=== PATIENT | female | born 1945 | race Caucasian/White ===

== ENCOUNTER 2016-05-04 12:22 | Emergency (ER) | payer OTHER ==
[2016-05-04] MEDS ORDERED: ASPIRIN PO STA (12:28)
--- NOTE | 2016-05-04 13:36 | Diag Imaging Result Document ---
PROCEDURE NAME: CHEST-2 VIEWS - 05/04/2016 CHEST X-RAY, 2 VIEWS: COMPARISON: None. FINDINGS: The lungs are normally expanded and clear. Heart size and mediastinal contours are normal. No pneumothorax or pleural effusion. IMPRESSION: Negative exam.
[2016-05-04 13:49] LABS: MANUAL DIFF NEEDED? NO
[2016-05-04 14:02] LABS: BASO% 0.3 % (0.0-0.8); EOS# 0.15 X1000 (0.0-0.7); EOS% 2.2 % (0.0-10.0); HEMATOCRIT 43.3 % (37.0-47.0); HEMOGLOBIN 14.3 g/dL (12.0-16.0); LYMPH# 3.01 X1000 (1.2-3.4); LYMPH% 44.6 % (20.5-51.1); MCH 30.3 PG (27-31); MCV 91.7 FL (81-99); MONO# 0.74 X1000 (0.11-0.59); MPV 11.7 FL (7.4-10.4); NEUT% 41.9 % (42.2-75.2); PLT 179 X1000 (130-400); RBC 4.72 XMIL (4.2-5.4)
[2016-05-04 14:04] LABS: INR 1.01; PROTIME 10.7 Seconds (9.2-11.7); PTT 30.3 Seconds (22.0-36.0)
[2016-05-04 14:18] LABS: AGAP 9; ALBUMIN 3.9 g/dL (3.5-5.0); ALKALINE PHOSPHATASE 71 U/L (32-104); BUN 16 mg/dL (8-22); CALCIUM 9.1 mg/dL (8.8-10.2); CHLORIDE 98 mmol/L (98-107); CK PROFILE 147 U/L (24-173); COSMO 273; GOT 17 U/L (10-30); GPT 17 U/L (10-36); MAGNESIUM 1.9 mg/dL (1.5-2.7); POTASSIUM 4.2 mmol/L (3.5-5.1); SODIUM 136 mmol/L (136-145); TCO2 29 mmol/L (25-35); TOTAL BILIRUBIN 0.31 mg/dL (0.20-1.00); TOTAL PROTEIN 6.2 g/dL (6.3-8.3)
--- NOTE | 2016-05-04 14:57 | PROVIDER DOCUMENTATION ---
HPI-Chest Pain - General Chief Complaint: Chest Pain Stated Complaint: cp Time Seen by Provider: 05/04/16 13:11 Source: patient Allergies/Adverse Reactions: Patient Allergies Allergy/AdvReac Type Severity Reaction Status Date / Time acetaminophen Allergy hallucinati Verified 05/04/16 13:30 [From Darvocet-N] ons adhesive Allergy RASH Verified 05/04/16 13:30 Latex, Natural Rubber Allergy RASH Verified 05/04/16 13:30 meperidine HCl * Allergy hallucinati Verified 05/04/16 13:30 [From Demerol] ons propoxyphene HCl * Allergy hallucinati Verified 05/04/16 13:30 [From Darvon] ons propoxyphene napsylate * Allergy hallucinati Verified 05/04/16 13:30 [From Darvocet-N] ons Iodinated Contrast Media - AdvReac VOMITING Verified 05/04/16 13:30 Oral and Home Medications: Amiodarone [Cordarone] 200 mg PO DAILY 05/04/16 Apixaban [Eliquis] 5 mg PO BID 05/04/16 Bisoprolol [Zebeta] 5 mg PO DAILY 05/04/16 Carbidopa/Levodopa [Sinemet 25/100] 1 each PO QHS 05/04/16 Clonazepam [Klonopin] 0.5 mg PO TID PRN 05/04/16 Ergocalciferol (Vitamin D2) [Vitamin D] 50,000 unit PO Q7D 05/04/16 Furosemide [Lasix] 40 mg PO Q3DAYS 05/04/16 Hydrocodone/APAP 10 mg/325 mg [Colora-10] 1 each PO 4XDAY PRN 05/04/16 LISINOpril [Prinivil] 10 mg PO DAILY 05/04/16 LOVAstatin [Mevacor] 20 mg PO DAILY 05/04/16 Levothyroxine [Synthroid] 50 microgm PO DAILY 05/04/16 Methocarbamol [Robaxin] 500 mg PO TID 05/04/16 Metoclopramide HCl [Reglan] 5 mg PO TID 05/04/16 Montelukast Sodium [Singulair] 10 mg PO DAILY 05/04/16 Nitroglycerin Sl [Nitroglycerin] 0.4 mg SL PRN PRN 05/04/16 Pantoprazole [Protonix] 40 mg PO DAILY 05/04/16 Sucralfate [Carafate] 1 gm PO TID 05/04/16 - History of Present Illness-CP Nature of Presenting Problem: patient is a 70 yo F that presents with chest paint that last a few seconds that began last pm. reports palpitation type. denies any shortness of breath, n/ v/d, or back pain. Location: reports: substernal Chest Pain Radiation: reports: no radiation Quality of Pain: reports: sharp Severity in ED: mild Onset/Duration: abrupt, 24 hours ago Timing: improving, intermittent Context/Activities at Onset: reports: none Modifying Factors: improves with: nothing Associated Symptoms: denies: abdominal pain, dizziness, nausea, shortness of breath, vomiting Aspirin Treatment Today: 325 mg x 1, provided by ED Similar Symptoms Previously?: Yes Recently Seen Here or By Another Healthcare Provider: No Review of Systems - Adult - REVIEW OF SYSTEMS - ADULT Constitutional: denies: chills, fever Eyes: reports: no symptoms reported Ears, Nose, Mouth & Throat: denies: ear pain, sinus problem, throat pain, throat swelling Cardiovascular: reports: chest pain, palpitations. denies: edema, syncope Respiratory: denies: cough, shortness of breath, wheezing Gastrointestinal: denies: abdominal pain, diarrhea, nausea, vomiting Genitourinary: reports: no symptoms reported Musculoskeletal: denies: back pain, joint pain, neck pain Integumentary: reports: no symptoms reported Neurological: reports: no symptoms reported Psychiatric: reports: no symptoms reported Endocrine: reports: no symptoms reported Hematologic/Lymphatic: reports: no symptoms reported Allergic/Immunologic: reports: no symptoms reported All Other Systems: Reviewed and Negative Past History - Adult - PAST MEDICAL HISTORY-ADULT Review of Records: reports: Old Records Reviewed, Nursing Assessment Review, Medications Reviewed Cardiovascular: reports: A-Fib, HTN, hyperlipidemia Endocrine/Immune: reports: Diabetes, thyroid disorder - PRIOR SURGERIES/PROCEDURES Surgical/Procedure History: reports: cholecystectomy, hysterectomy, orthopedic ( extremity) - IMMUNIZATION STATUS Childhood Immunizations: See Nurse Assessment Flu Vaccine: See Nurse Assessment - FAMILY HISTORY Family History: reviewed, not pertinent - SOCIAL HISTORY Smoking: non-smoker Living Situation: family Physical Exam-General - PHYSICAL EXAM-ADULT Initial Vital Signs Reviewed: Yes - CONSTITUTIONAL General Appearance: alert, no apparent distress - EYES Eyes: PERRL/EOMI, pink conjunctivae - HEAD, EARS, NOSE, MOUTH & THROAT HENMT: normocephalic/atraumatic, moist mucous membranes, normal ENT inspection - NECK Neck: full range of motion, normal inspection - RESPIRATORY Respiratory: lungs clear, normal breath sounds, no respiratory distress, no accessory muscle use - CARDIOVASCULAR Cardiovascular: regular rate, rhythm, no edema, no murmur - GASTROINTESTINAL (ABDOMEN) Abdominal Exam: normal bowel sounds, non tender, soft, no organomegaly, no pulsatile mass - MUSCULOSKELETAL Back Exam: no CVA tenderness, no vertebral tenderness Extremity: normal range of motion, non-tender, normal inspection, no pedal edema , normal capillary refill, pelvis stable - SKIN Integumentary: normal color, warm/dry - NEUROLOGIC Neurologic: grossly normal, no motor/sensory deficits - PSYCHIATRIC Psych/Mental Status: normal mood/affect, normal thought content, normal thought process, oriented x 3 Progress - PLAN OF CARE/RESULTS Progress/Plan/Lab Results: plan of care-cardiac work up Vital Signs Temp Pulse Resp BP Pulse Ox 05/04/16 16:00 52 L 13 160/88 94 L 05/04/16 12:34 97.8 F 60 18 243/74 95 acetaminophen [From Darvocet-N] Allergy (Verified 05/04/16 13:30) hallucinations adhesive Allergy (Verified 05/04/16 13:30) RASH Latex, Natural Rubber Allergy (Verified 05/04/16 13:30) RASH meperidine HCl * [From Demerol] Allergy (Verified 05/04/16 13:30) hallucinations propoxyphene HCl * [From Darvon] Allergy (Verified 05/04/16 13:30) hallucinations propoxyphene napsylate * [From Darvocet-N] Allergy (Verified 05/04/16 13:30) hallucinations Iodinated Contrast Media - Oral and Adverse Reaction (Verified 05/04/16 13:30) VOMITING Amiodarone [Cordarone] 200 mg PO DAILY 05/04/16 Apixaban [Eliquis] 5 mg PO BID 05/04/16 Bisoprolol [Zebeta] 5 mg PO DAILY 05/04/16 Carbidopa/Levodopa [Sinemet 25/100] 1 each PO QHS 05/04/16 Clonazepam [Klonopin] 0.5 mg PO TID PRN 05/04/16 Ergocalciferol (Vitamin D2) [Vitamin D] 50,000 unit PO Q7D 05/04/16 Furosemide [Lasix] 40 mg PO Q3DAYS 05/04/16 Hydrocodone/APAP 10 mg/325 mg [Colora-10] 1 each PO 4XDAY PRN 05/04/16 LISINOpril [Prinivil] 10 mg PO DAILY 05/04/16 LOVAstatin [Mevacor] 20 mg PO DAILY 05/04/16 Levothyroxine [Synthroid] 50 microgm PO DAILY 05/04/16 Methocarbamol [Robaxin] 500 mg PO TID 05/04/16 Metoclopramide HCl [Reglan] 5 mg PO TID 05/04/16 Montelukast Sodium [Singulair] 10 mg PO DAILY 05/04/16 Nitroglycerin Sl [Nitroglycerin] 0.4 mg SL PRN PRN 05/04/16 Pantoprazole [Protonix] 40 mg PO DAILY 05/04/16 Sucralfate [Carafate] 1 gm PO TID 05/04/16 Dietary Diet Diabetic Diet Start SunMay 04 1630 Laboratory 05/04/16 05/04/16 05/04/16 13:35 13:35 13:35 WBC RBC Hgb Hct MCV MCH MCHC RDW Std Deviation Plt Count MPV Neut % (Auto) Lymph % (Auto) Sterling % (Auto) Eos % (Auto) Baso % (Auto) Neut # (Auto) Lymph # (Auto) Sterling # (Auto) Eos # (Auto) Baso # (Auto) PT 10.7 INR 1.01 PTT (Actin FS) 30.3 Sodium Potassium Chloride Carbon Dioxide Anion Gap BUN Creatinine Estimated GFR/1.73 m2 BUN/Creatinine Ratio Glucose Calculated Osmolality Calcium Magnesium Total Bilirubin AST ALT Alkaline Phosphatase Creatine Kinase Troponin T < 0.010 Wbo-P-Wtoudwmblpr Pept 397 H Total Protein Albumin Globulin Albumin/Globulin Ratio 05/04/16 05/04/16 13:35 13:35 WBC 6.75 RBC 4.72 Hgb 14.3 Hct 43.3 MCV 91.7 MCH 30.3 MCHC 33.0 RDW Std Deviation 13.0 Plt Count 179 MPV 11.7 H Neut % (Auto) 41.9 L Lymph % (Auto) 44.6 Sterling % (Auto) 11.0 H Eos % (Auto) 2.2 Baso % (Auto) 0.3 Neut # (Auto) 2.83 Lymph # (Auto) 3.01 Sterling # (Auto) 0.74 H Eos # (Auto) 0.15 Baso # (Auto) 0.02 PT INR PTT (Actin FS) Sodium 136 Potassium 4.2 Chloride 98 Carbon Dioxide 29 Anion Gap 9 BUN 16 Creatinine 0.8 Estimated GFR/1.73 m2 > 60 BUN/Creatinine Ratio 20 Glucose 88 Calculated Osmolality 273 Calcium 9.1 Magnesium 1.9 Total Bilirubin 0.31 AST 17 ALT 17 Alkaline Phosphatase 71 Creatine Kinase 147 Troponin T Cij-A-Mvpaplzeihs Pept Total Protein 6.2 L Albumin 3.9 Globulin 2.3 Albumin/Globulin Ratio 1.7 Orders Category Date Time [place] [facility] [place] [facility] Communication Order DIRECTED Care 05/04/16 16:27 Active Diabetic Diet Diet 05/04/16 16:30 Active CHEST-2 VIEWS [RAD] Stat Exams 05/04/16 12:28 Draft CBC WITH ELECTRONIC DIFF [HEME] Stat Lab 05/04/16 13:35 Completed CK PROFILE [SP CHEM] Stat Lab 05/04/16 13:35 Completed COMPREHENSIVE METABOLIC PANEL [CHEM] Stat Lab 05/04/16 13:35 Completed MAGNESIUM [CHEM] Stat Lab 05/04/16 13:35 Completed PRO B-NATRIURETIC PEPTIDE Stat Lab 05/04/16 13:35 Completed PROTIME WITH INR [COAG] Stat Lab 05/04/16 13:35 Completed PTT [COAG] Stat Lab 05/04/16 13:35 Completed TROPONIN T Stat Lab 05/04/16 13:35 Completed Aspirin Med 05/04/16 12:28 Discontinued 325 mg PO STAT STA EKG [EKG] Stat Ther 05/04/16 12:28 Draft pt will be d/c home , she is schedule next week with pcp, pt was clinically stable - EKG 1 Time of EKG reading by physician:: 12:30 EKG Read and Signed by:: Ritchie Kellogg EKG Interpretation (*Must complete 3 of following elements*): Abnormal Rate: 53 Rhythm: sinus bradycardia with 1st degree av block MD Interval: normal ST Wave: normal Departure - Departure Time of Disposition Order: 16:34 DIAGNOSIS: Atypical chest pain, PVCs (premature ventricular contractions) Disposition: HOME 01 Certified Medical Emergency: Emergent Condition: Stable Additional Instructions: ED Follow Up Instructions: You have been treated by a care provider in the Emergency Department. These instructions are being provided to you so you can have an understanding of how to care for yourself upon discharge. Upon discharge from the Emergency Department, you are responsible for making arrangements for follow-up care by a physician of your choice. Take all prescribed medications as directed. Return to the Emergency Department immediately for any new or worsening symptoms. You may call the Physician Referral phone number at [phone] to obtain a list of Physicians who are taking new patients. Instructions: Nonspecific Chest Pain, Premature Ventricular Contraction Attestation - Scribe Verification/Attestation Scribe:: Miguel Crawford Acting as Scribe for:: Lele Boyer Scribe documention review:: This chart was documented by a scribe and accurately reflects the service the provider performed and the decisions made by the provider. Physician Attestation - Physician Attestation I, the provider, attest to the following statement:: Lele Boyer Physician documentation Attestation:: This documentation recorded by the scribe accurately reflects the service I personally performed and the decisions made by me.
--- NOTE | 2016-05-04 15:34 | EKG Report ---
Test Performed on : 05/04/2016 12:31:24 PM Test Reason : Chest Pain Blood Pressure : / mmHG Vent. Rate : 055 BPM Atrial Rate : 055 BPM P-R Int : 212 ms QRS Dur : 098 ms QT Int : 466 ms P-R-T Axes : 071 -22 054 degrees QTc Int : 445 ms Sinus bradycardia. with 1st degree AV block. Otherwise normal ECG When compared with ECG of 04-MAY-2016 12:30, (Unconfirmed) No significant change was found Unconfirmed Result
[2016-05-04 16:09] VITALS: BP 160/88
== END 2016-05-04 17:00 | disposition home or self-care (01) ==
LOC: ED 12:22
DX: R07.89 Other chest pain (principal); I49.3 Ventricular premature depolarization; R00.2 Palpitations; I48.91 Unspecified atrial fibrillation; I10 Essential (primary) hypertension; E78.5 Hyperlipidemia, unspecified; E11.9 Type 2 diabetes mellitus without complications; E07.9 Disorder of thyroid, unspecified; Z79.899 Other long term (current) drug therapy; R94.31 Abnormal electrocardiogram [ECG] [EKG]; Z79.01 Long term (current) use of anticoagulants
CPT/HCPCS: 36415; 71020; 80053; 82550; 83735; 83880; 84484; 85025; 85610; 85730; 93005; 99283